=== PATIENT | male | born 1990 | race African-American/Black ===

== ENCOUNTER 2022-06-25 10:57 | Outpatient (CLI) | payer SELFPAY | END 2022-06-25 10:58 | disposition home or self-care (01) | LOC: AMB 07-03 09:59 | PROVIDERS: Visit Provider Internal Medicine | DX: S01.81XA Laceration without foreign body of other part of head, initial encounter (principal); V44.5XXA Car driver injured in collision with heavy transport vehicle or bus in traffic accident, initial encounter; Y92.413 State road as the place of occurrence of the external cause; Y99.8 Other external cause status | CPT/HCPCS: A0998 ==